=== PATIENT | male | born 2000 | race Caucasian/White ===

== ENCOUNTER 2021-09-10 09:27 | Emergency (ER) | payer OTHER | END 2021-09-10 10:14 | disposition home or self-care (01) | LOC: MADERS 09:27 | DX: N48.89 Other specified disorders of penis (principal); F17.210 Nicotine dependence, cigarettes, uncomplicated | CPT/HCPCS: 99282 ==

== ENCOUNTER 2021-11-14 10:10 | Emergency (ER) | payer BC, OTHER | END 2021-11-14 10:48 | disposition home or self-care (01) | LOC: MADERS 10:10 | DX: S01.01XA Laceration without foreign body of scalp, initial encounter (principal); Z87.891 Personal history of nicotine dependence; V86.05XA Driver of 3- or 4- wheeled all-terrain vehicle (ATV) injured in traffic accident, initial encounter | CPT/HCPCS: 12001 ==

== ENCOUNTER 2021-11-24 16:22 | Emergency (ER) | payer BC | END 2021-11-24 16:56 | disposition home or self-care (01) | LOC: MADERS 16:22 | DX: S01.01XD Laceration without foreign body of scalp, subsequent encounter (principal); Z87.891 Personal history of nicotine dependence ==